=== PATIENT | female | born 1990 | race Caucasian/White ===

== ENCOUNTER 2024-02-14 18:58 | Inpatient (IN) | payer MEDICAID ==
[~2024-02-14] VITALS: Ht 180.3 cm; Wt 68.5 kg
[2024-02-14 20:14] LABS: HEMATOCRIT. 47.9 % (36.0-48.0); HEMOGLOBIN. 16.4 g/dL (12.0-16.0); MEAN CORPUSCULAR HEMOGLOBIN 26.2 pg (28.0-32.0); MEAN CORPUSCULAR HGB CONC 34.2 g/dL (31.0-37.0); MEAN CORPUSCULAR VOLUME 76.7 fL (81.0-99.0); MEAN PLATELET VOLUME 8.4 fl (7.4-10.4); PLATELET 465 x1000/uL (130-400); RED BLOOD CELL COUNT 6.25 mill/uL (4.2-5.4); RED CELL DISTRIBUTION WIDTH 14.8 % (11.6-14.6); WHITE BLOOD COUNT 24.9 x1000/uL (4.5-11.0)
[2024-02-14 20:22] LABS: DIFFERENTIAL COMMENT 1
[2024-02-14] MEDS: KETOROLAC 30MG/ML VIAL IV STA (20:27)
[2024-02-14] MEDS: ONDANSETRON HCL 4MG/2ML INJ IV ONE (20:28)
[2024-02-14] MEDS: SODIUM CHLORIDE 0.9% 1,000 ML IV ONE ×2 (20:28→22:30)
[2024-02-14 20:33] LABS: HCG SCREEN NEGATIVE
[2024-02-14 20:39] LABS: MICROCYTOSIS 1+; PLATELET ESTIMATE INCREASED
[2024-02-14 20:42] LABS: ALANINE AMINOTRANSFERASE 17 IU/L (10-49); ASPARTATE AMINOTRANSFERASE 20 IU/L (<34); BILIRUBIN TOTAL 0.7 mg/dL (0.1-1.0); CALCIUM 10.9 mg/dL (8.7-10.4); CARBON DIOXIDE 24 mEq/L (21-32); CHLORIDE 100 mEq/L (98-107); CREATININE 1.1 mg/dL (0.6-1.0); GLUCOSE 149 mg/dL (70-105); PROTEIN TOTAL 10.4 g/dL (6.0-8.3); SODIUM 142 mEq/L (136-145); UREA NITROGEN BLOOD 14 mg/dL (9-23)
[2024-02-14 20:43] LABS: ALBUMIN 6.1 g/dL (3.2-4.8); ETHANOL BLOOD < 10 mg/dL (<10)
[2024-02-14 20:46] LABS: POTASSIUM 2.1 mEq/L (3.5-5.1)
[2024-02-14 21:07] LABS: PHOSPHORUS 2.4 mg/dL (2.5-4.9)
[2024-02-14] MEDS: POTASSIUM CHLORIDE 20MEQ TABLET SR PO ONE (21:22)
[2024-02-14] MEDS: MAGNESIUM 2 G PREMIX 50 ML IV ONE (21:22)
[2024-02-14] MEDS: KCL 20MEQ/100ML PREMIX 100 ML IV SCH (22:04)
[2024-02-14] MEDS: PANTOPRAZOLE SODIUM 40 MG/VIAL IV ONE (22:58)
[2024-02-14] MEDS: FAMOTIDINE 20MG/2ML VIAL IV ONE (22:58)
[2024-02-14 23:23] LABS: TROPONIN I HIGH SENSITIVITY 15 ng/L (3.0-34)
[2024-02-15] MEDS ORDERED: CLONIDINE 0.1MG TABLET PO PRN (00:15)
[2024-02-15] MEDS ORDERED: IPRATROPIUM/ALBUTEROL 0.5-3(2.5)MG/3ML NEB HHN PRN (00:15)
[2024-02-15] MEDS ORDERED: ACETAMINOPHEN 325MG TABLET PO PRN ×2 (00:15)
[2024-02-15] MEDS ORDERED: GUAIFENESIN 200MG/10ML SUGAR FREE UDC PO PRN (00:15)
[2024-02-15] MEDS ORDERED: DOCUSATE SODIUM 100MG CAPSULE PO PRN (00:15)
[2024-02-15 00:30] VITALS: BP 130/71; PULSE 98; RESP 18; TEMP 97.4
[2024-02-15] MEDS: LORAZEPAM 0.5MG TABLET PO NR (01:39)
[2024-02-15] MEDS: KETOROLAC 15MG/ML VIAL IV PRN (02:34)
[2024-02-15] MEDS ORDERED: LORAZEPAM 2MG/ML INJ IV NR (04:00)
[2024-02-15] MEDS: POTASSIUM CHLORIDE 20MEQ TABLET SR PO NR ×2 (04:15→08:33)
[2024-02-15] MEDS: METOCLOPRAMIDE HCL 10MG/2ML VIAL IV PRN (04:51)
[2024-02-15 05:46] LABS: CALCIUM 8.7 mg/dL (8.7-10.4); CARBON DIOXIDE 21 mEq/L (21-32); CHLORIDE 110 mEq/L (98-107); CREATINE KINASE 109 IU/L (34-145); CREATINE KINASE MB FRACTION 1.2 ng/mL (0.5-3.6); CREATININE 0.8 mg/dL (0.6-1.0); GLUCOSE 101 mg/dL (70-105); PHOSPHORUS 2.6 mg/dL (2.5-4.9); POTASSIUM 2.9 mEq/L (3.5-5.1); SODIUM 142 mEq/L (136-145); TROPONIN I HIGH SENSITIVITY 8 ng/L (3.0-34); UREA NITROGEN BLOOD 11 mg/dL (9-23)
[2024-02-15 08:00] VITALS: BP 110/68; PULSE 99; RESP 20; TEMP 97.5
[2024-02-15] MEDS: ENOXAPARIN 40MG/0.4ML SYR SUBCUT SCH (08:33)
[2024-02-15] MEDS: PANTOPRAZOLE SODIUM 40 MG/VIAL IV SCH (08:33)
[2024-02-15] MEDS: DEXT 5%/LACTATED RINGERS 1,000 ML IV SCH (08:34)
[2024-02-15 12:00] VITALS: BP 117/67; PULSE 81; RESP 18; TEMP 98.2
[2024-02-15] MEDS: HYDROXYZINE 25MG TABLET PO PRN (12:18)
[2024-02-15 16:00] VITALS: BP 122/68; PULSE 78; RESP 20; TEMP 98
[2024-02-15 16:13] LABS: CREATINE KINASE MB FRACTION 0.9 ng/mL (0.5-3.6)
[2024-02-15 17:24] LABS: CLARITY URINE TURBID (CLEAR); COLOR URINE YELLOW (YELLOW); GLUCOSE URINE NEGATIVE (NEGATIVE); KETONES URINE 2+ (NEGATIVE); LEUKOCYTE ESTERASE URINE 3+ (NEGATIVE); NITRITE URINE NEGATIVE (NEGATIVE); OCCULT BLOOD URINE NEGATIVE (NEGATIVE); PH URINE >=9.0 (4.5-8.0); PROTEIN URINE 2+ (NEGATIVE); SPECIFIC GRAVITY URINE 1.025 (1.005-1.030)
[2024-02-15 17:57] LABS: *AMPHETAMINES SCREEN URINE PRESUMPTIVE POSITIVE (NEGATIVE); *BARBITURATES SCREEN URINE NEGATIVE (NEGATIVE); *BENZODIAZEPINES SCREEN URINE NEGATIVE (NEGATIVE); *COCAINE SCREEN URINE PRESUMPTIVE POSITIVE (NEGATIVE); CANNABINOID URINE SCREEN PRESUMPTIVE POSITIVE (NEGATIVE); ECSTASY MDMA SCREEN URINE NEGATIVE (NEGATIVE); METHADONE URINE SCREEN Neg (NEGATIVE); OPIATES URINE SCREEN NEGATIVE (NEGATIVE); PHENCYCLIDINE URINE SCREEN NEGATIVE (NEGATIVE)
[2024-02-15 18:08] LABS: BACTERIA URINE 4+; RBC URINE 0-2 /hpf (0-2); SQUAMOUS EPITHELIAL CELL URINE 1+ /lpf (RARE/1+)
[2024-02-15 20:00] VITALS: BP 106/65; PULSE 94; RESP 16; TEMP 98.7
[2024-02-16 04:00] VITALS: BP 117/63; PULSE 88; RESP 18; TEMP 98.2
[2024-02-16 06:53] LABS: BASOPHILS % 0.2 % (0.0-2.0); DIFFERENTIAL COMMENT 0; EOSINOPHILS % 0.9 % (0.0-5.0); HEMATOCRIT. 35.9 % (36.0-48.0); HEMOGLOBIN. 12.2 g/dL (12.0-16.0); LYMPHOCYTES % 17.2 % (20.0-50.0); MEAN CORPUSCULAR HEMOGLOBIN 26.3 pg (28.0-32.0); MEAN CORPUSCULAR VOLUME 77.3 fL (81.0-99.0); MEAN PLATELET VOLUME 8.4 fl (7.4-10.4); MONOCYTES % 5.6 % (2.0-8.0); NEUTROPHILS % 76.1 % (40.0-76.0); PLATELET 255 x1000/uL (130-400); RED BLOOD CELL COUNT 4.64 mill/uL (4.2-5.4); RED CELL DISTRIBUTION WIDTH 15.1 % (11.6-14.6); WHITE BLOOD COUNT 9.8 x1000/uL (4.5-11.0)
[2024-02-16 07:10] LABS: ALANINE AMINOTRANSFERASE 8 IU/L (10-49); ALBUMIN 4.2 g/dL (3.2-4.8); ASPARTATE AMINOTRANSFERASE 13 IU/L (<34); BILIRUBIN TOTAL 0.5 mg/dL (0.1-1.0); CALCIUM 8.5 mg/dL (8.7-10.4); CARBON DIOXIDE 22 mEq/L (21-32); CHLORIDE 111 mEq/L (98-107); CHOLESTEROL 74 mg/dL (<200); CREATININE 0.7 mg/dL (0.6-1.0); GLUCOSE 87 mg/dL (70-105); HDL CHOLESTEROL 32 mg/dL (>65); LDL CHOLESTEROL 33 mg/dL (5-100); PHOSPHORUS 1.6 mg/dL (2.5-4.9); POTASSIUM 3.1 mEq/L (3.5-5.1); PROTEIN TOTAL 6.7 g/dL (6.0-8.3); SODIUM 141 mEq/L (136-145); THYROID STIMULATING HORMONE 0.49 uIU/mL (0.55-4.78); TRIGLYCERIDE 58 mg/dL (0-150); UREA NITROGEN BLOOD 8 mg/dL (9-23)
[2024-02-16] MEDS: POTASSIUM CHLORIDE 20MEQ TABLET SR PO NR (09:28)
[2024-02-16] MEDS: POTASSIUM-SODIUM PHOSPHATE POWDER PACKET PO NR (09:58)
[2024-02-16 10:39] VITALS: BP 129/77; PULSE 68; TEMP 97.7; O2SAT 99
[2024-02-16 12:00] VITALS: BP 120/80; PULSE 66; RESP 18; TEMP 98.1
[2024-02-17] MEDS ORDERED: FAMOTIDINE 20MG/2ML VIAL IV SCH (09:00)
== END 2024-02-16 14:50 | disposition home or self-care (01) | DRG 425 ==
LOC: ER 18:58 → 8WST 02-15 00:34
PROVIDERS: ADMIT Internal Medicine; ATTEND Internal Medicine
DX: E87.6 Hypokalemia (principal); E83.51 Hypocalcemia; F11.23 Opioid dependence with withdrawal; F41.9 Anxiety disorder, unspecified; F19.10 Other psychoactive substance abuse, uncomplicated; Z79.899 Other long term (current) drug therapy
CPT/HCPCS: 36415; 71045; 80048; 80053; 80061; 80305; 80320; 81003; 82550; 82553; 83605; 83735; 84100; 84145; 84439; 84443; 84484; 84703; 85025; 93005; 99285; C9113; J1650; J1885; J2405; J2765; J3475; J3480; J3490; J7030; G0480